=== PATIENT | male | born 2000 | race Caucasian/White ===

== ENCOUNTER 2020-03-19 10:12 | Emergency (ER) | payer OTHER ==
[~2020-03-19] VITALS: Ht 165.1 cm; Wt 46.7 kg
[2020-03-19 10:29] VITALS: Ht 165.1 cm; Wt 46.7 kg
[2020-03-19 12:17] VITALS: BP 121/72
== END 2020-03-19 12:17 | disposition home or self-care (01) ==
LOC: ED 10:12
DX: S61.211A Laceration without foreign body of left index finger without damage to nail, initial encounter (principal); S61.213A Laceration without foreign body of left middle finger without damage to nail, initial encounter; S61.215A Laceration without foreign body of left ring finger without damage to nail, initial encounter; W31.9XXA Contact with unspecified machinery, initial encounter; Y93.89 Activity, other specified; Y92.89 Other specified places as the place of occurrence of the external cause; Y99.8 Other external cause status
CPT/HCPCS: J2001; J2270; J2405